=== PATIENT | female | born 1950 | race Caucasian/White ===

== ENCOUNTER 2016-10-20 04:16 | Emergency (ER) | payer OTHER ==
[~2016-10-20 04:16] MED LIST: DIPHENHYDRAMINE50 MG; ECO81 PO; NOR10 PO; NORVASC2.5 MG; PROTONIX20 MG PO; SIMVASTATIN10 M1; ZOC20 PO; ZOF4
[2016-10-20 07:10] LABS: BASOPHIL % 0.3 % (0-2); PLATELET COUNT 295 x10^3mcL (130-400); RED CELL DISTRIBUTION WIDTH 13.1 % (11.5-14.5)
[2016-10-20 07:11] LABS: CARBON DIOXIDE 25.7 mmol/L (21-32); CHLORIDE SERUM 105 mmol/L (98-107); CREATININE SERUM 0.6 mg/dL (0.6-1.0); GFR1 > 60 mL/min; GLUCOSE SERUM 112 mg/dL (74-106); POTASSIUM SERUM 3.4 mmol/L (3.5-5.1); SODIUM SERUM 142 mmol/L (136-145)
[2016-10-20 07:23] LABS: ALBUMIN 3.8 g/dL (3.4-5.0); ALKALINE PHOSPHATASE 130 U/L (46-116); ALT/SGPT 23 U/L (14-59); AMYLASE 86 U/L (25-115); AST/SGOT 22 U/L (15-37); BILIRUBIN TOTAL 0.45 mg/dL (0.20-1.00); CHOLESTEROL 142 mg/dL (<200); LIPASE 127 IU/L (73-393); MAGNESIUM 2.1 mg/dL (1.8-2.4); T4(THYROXINE) 9.9 ug/dL (4.7-13.3)
[2016-10-20 07:28] LABS: HDL CHOLESTEROL 82 mg/dL (40-60)
[2016-10-20 07:45] LABS: microscopic required? YES; urine erythrocyte TRACE (NEGATIVE)
[2016-10-20 09:03] VITALS: BP 126/69
== END 2016-10-20 09:03 | disposition home or self-care (01) ==
LOC: ED 04:16
PROVIDERS: Emergency Medicine
DX: R42 Dizziness and giddiness (principal); E87.6 Hypokalemia; I10 Essential (primary) hypertension; E78.00 Pure hypercholesterolemia, unspecified; E11.9 Type 2 diabetes mellitus without complications
CPT/HCPCS: 82962; 83880; J2550; J8597; Q0162

== ENCOUNTER 2017-04-18 00:32 | Emergency (ER) | payer OTHER ==
[~2017-04-18] VITALS: Ht 149.9 cm; Wt 56.2 kg
[2017-04-18 00:43] VITALS: BP 126/48; Ht 149.9 cm; Wt 56.2 kg
== END 2017-04-18 05:52 | disposition left against medical advice (07) ==
LOC: ED 00:32
DX: Z53.21 Procedure and treatment not carried out due to patient leaving prior to being seen by health care provider (principal)